=== PATIENT | female | born 1960 | race Hispanic/Latino ===

== ENCOUNTER 2016-10-13 09:01 | Emergency (ER) | payer BC ==
[2016-10-13] MEDS ORDERED: BSS ONE ×3 (09:22→09:49)
[2016-10-13] MEDS ORDERED: FUL-GLO OP ONE ×3 (09:22→12:43)
[2016-10-13] MEDS ORDERED: TETRACAINE 0.5% ONE ×2 (09:23→09:50)
[2016-10-13] MEDS ORDERED: NACL 0.9% 1000 ML 1,000 ML ONE (09:31)
[2016-10-13] MEDS ORDERED: TETRACAINE 0.5% OU ONE (10:00)
[2016-10-13 10:39] VITALS: BP 162/88
[2016-10-13] MEDS ORDERED: MOTRIN PO ONE (10:43)
[2016-10-13] MEDS ORDERED: NACL 0.9% 1000 ML 1,000 ML IV ONE (12:47)
--- NOTE | 2016-10-13 19:01 | Emergency Department Report ---
Entered by SEBASTIÁN KEN, acting as scribe for ADA OTT PA. 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 Associated symptoms include pain, burning , redness, decreased vision, and blurry vision but she denies fever, chills, nausea, vomiting and headache. Patient states granddaughter put nail glue in her bag and she accidentally put glue in her left eye instead of prescription eye drops. Patient uses lubricating eye drops daily due to dry eyes. Pain is described as burning and 4/10 on a severity scale. 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 No aggravating factors. Allergic to tetanus vaccine and toxoid. chief complaint: eye pain, other (Nail glue in left eye) -: This morning Onset Description: sudden Location: left eye Place: home Eye Symptoms: burning, redness, pain, decreased vision, blurry vision Severity: mild Severity scale (0 -10): 4 If Pain, Quality: burning Consistency: constant Associated Symptoms: denies: headache, nausea/vomiting, fever, other (chills) Treatments Prior to Arrival: irrigated eye - Related Data Allergies Allergy/AdvReac Type Severity Reaction Status Date / Time Tetanus Vaccines & Toxoid Allergy Anaphylaxis Verified 10/13/16 09:17 ED Review of Systems Comment: All other systems reviewed and negative Constitutional: denies: chills, fever Eyes: eye pain, other (blurry vision, decreased vision, burning, redness) ENT: denies: ear pain, throat pain Respiratory: denies: cough, shortness of breath, wheezing Cardiovascular: denies: chest pain, palpitations Endocrine: no symptoms reported Gastrointestinal: denies: nausea, vomiting Genitourinary: denies: urgency, dysuria, discharge Musculoskeletal: denies: back pain, joint swelling, arthralgia Skin: denies: rash, lesions Neurological: denies: headache Psychiatric: denies: anxiety, depression Hematological/Lymphatic: denies: easy bleeding, easy bruising ED Past Medical Hx - Past Medical History Hx Hypertension: Yes (1994) Additional medical history: Anxiety - Surgical History Past Surgical History?: Yes Additional Surgical History: x 2 1981, 1985 - Social History Smoking Status: Never Smoker Substance Use Type: Alcohol ED Physical Exam - General Limitations: No Limitations General appearance: alert, in no apparent distress - Head Head exam: Present: atraumatic, normocephalic, normal inspection - Eye Eye exam: Present: PERRL, EOMI, other (Flourescein stain uptake in the left pupil at the 6 o'clock position) - Expanded Eye Exam Expanded Sclera/Conjunctival: Injection: Left (lower half of cornea visibly covered with crystallized glue) Visual acuity (R) = 20/: 20 Visual acuity (L) = 20/: 100 (Patient does not have glasses or contacts) - ENT ENT exam: Present: normal exam, normal orophraynx, mucous membranes moist, TM's normal bilaterally, normal external ear exam - Neck Neck exam: Present: normal inspection, full ROM. Absent: tenderness, meningismus, lymphadenopathy, thyromegaly - Respiratory Respiratory exam: Present: normal lung sounds bilaterally. Absent: respiratory distress, wheezes, rales, rhonchi, stridor, chest wall tenderness, accessory muscle use, decreased breath sounds, prolonged expiratory - Cardiovascular Cardiovascular Exam: Present: regular rate, normal rhythm. Absent: bradycardia , tachycardia, irregular rhythm, normal heart sounds, systolic murmur, diastolic murmur, rubs, gallop - GI/Abdominal GI/Abdominal exam: Present: soft, normal bowel sounds. Absent: tenderness, guarding, rebound - Extremities Exam Extremities exam: Present: normal inspection, full ROM, normal capillary refill. Absent: tenderness, pedal edema, joint swelling, calf tenderness - Back Exam Back exam: Present: normal inspection, full ROM. Absent: tenderness, CVA tenderness (R), CVA tenderness (L), muscle spasm, paraspinal tenderness, vertebral tenderness, rash noted - Neurological Exam Neurological exam: Present: alert, oriented X3 - Psychiatric Psychiatric exam: Present: normal affect, normal mood - Skin Skin exam: Present: warm, dry, intact, normal color. Absent: rash ED Course Vital Signs 10/13/16 10/13/16 10/13/16 09:05 09:06 10:38 Temperature 98.3 F 98.3 F 98.3 F Pulse Rate 115 H 115 H 95 H Respiratory 20 20 16 Rate Blood Pressure 162/96 Blood Pressure 162/96 162/88 [Left] O2 Sat by Pulse 99 99 97 Oximetry 10/13/16 10/13/16 10:43 10:59 Temperature Pulse Rate Respiratory 16 16 Rate Blood Pressure Blood Pressure [Left] O2 Sat by Pulse 97 Oximetry - Eye Procedure Alcaine Drops Administered: Yes Eye FB Removal: other (irrgation w/ mrogan lens) Eye Irrigated w/ Saline (ccs): 1,000 ED Medical Decision Making - Medical Decision Making A/P: Foreign substance to left cornea, nail albanian to left cornea 1- case discussed with Opthalmology [place] Transfer Hotline. Will continue to irrigate and then transfer pt to [facility] ED Camp. Dr Coffman in ED at [place] made aware. 2- Case d/w Dr. Melendez 3- Eye irrigated with 1000ml NS via star lens with significant clearance of initial corneal foreign substance, pt stated he vision improved significantly and pain decreased 4- pt advised to report directly to [facility] for emergent optho eval. Pt and her agreed to go, Dr. Melendez notified, pt discharged with instructions to report directly to [facility]. ED Disposition Clinical Impression: Chemical exposure of eye Corneal abrasion, left Qualifiers: Encounter type: initial encounter Qualified Code(s): S05.02XA - Injury of conjunctiva and corneal abrasion without foreign body, left eye, initial encounter Disposition: [id number]/TX-[id number] ANOTHER TYPE HLTHCARE Is pt being admited?: No Does the pt Need Aspirin: No Condition: Stable Instructions: Chemical Eye [place] (ED), Corneal Abrasion (ED) Additional Instructions: Patient instructed to drive directly to [facility] for emergent ophthalmology consultation. Patient and her agreed to do so upon discharge. Dr. Coffman ED attending and Dr. 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 Referrals: GENOVEVA SUNG MD [Staff Physician] - 3-5 Days SEAN SIGALA MD [Staff Physician] - 3-5 Days Forms: Accompanied Note Time of Disposition: 10:45 This documentation as recorded by the SUELLEN tao ELIZABETH,accurately reflects the service I personally performed and the decisions made by ,ADA OTT PA.
== END 2016-10-13 11:00 | disposition other institution (70) ==
LOC: ED 09:01
DX: S05.02XA Injury of conjunctiva and corneal abrasion without foreign body, left eye, initial encounter (principal); F41.9 Anxiety disorder, unspecified; I10 Essential (primary) hypertension; Z88.7 Allergy status to serum and vaccine; X58.XXXA Exposure to other specified factors, initial encounter; Y93.89 Activity, other specified; Y99.8 Other external cause status; Y92.009 Unspecified place in unspecified non-institutional (private) residence as the place of occurrence of the external cause
CPT/HCPCS: 65205; 96360; 99284; J7030